=== PATIENT | female | born 1985 | race Caucasian/White ===

== ENCOUNTER 2022-03-02 16:53 | Emergency (ER) | payer OTHER ==
[~2022-03-02] VITALS: Ht 154.9 cm; Wt 93.0 kg
[~2022-03-02 16:53] MED LIST: ULTRACET PO; ZITHROMAX TRI-500 MG PO
[2022-03-02] MEDS ORDERED: CIPRO500 MG PO (19:30)
[2022-03-02] MEDS ORDERED: DICLOFENAC SODI75 MG PO (19:30)
== END 2022-03-02 19:44 | disposition home or self-care (01) ==
LOC: ER 16:53
DX: N39.0 Urinary tract infection, site not specified (principal); R10.32 Left lower quadrant pain

== ENCOUNTER 2022-10-01 16:35 | Emergency (ER) | payer OTHER ==
[~2022-10-01] VITALS: Ht 154.9 cm; Wt 82.6 kg
[~2022-10-01 16:35] MED LIST changes: +CIPRO500 MG PO; +DICLOFENAC SODI75 MG PO
== END 2022-10-01 22:46 | disposition home or self-care (01) ==
LOC: ER 16:35
DX: N20.9 Urinary calculus, unspecified (principal); R10.32 Left lower quadrant pain; N20.0 Calculus of kidney; N83.202 Unspecified ovarian cyst, left side